=== PATIENT | female | born 1940 | race Caucasian/White ===

== ENCOUNTER → 2019-03-20 11:47 | Outpatient (CLI) | payer MEDICARE, SELFPAY ==
--- NOTE | 2019-03-20 11:55 | US_ITS ---
STUDY: RENAL ULTRASOUND - COMPLETE REASON FOR EXAM: Female, 78 years old. UTI urinary frequency TECHNIQUE: Ultrasound evaluation of the kidneys was performed with real-time and static gunn-scale imaging. COMPARISON: None. FINDINGS: RIGHT KIDNEY: Normal location of the right kidney, which is normal in size. The right kidney measures 10.5 x 5.7 x 4.8 cm. There is a normal cortex of the right kidney. The renal cortex measures 1.2 cm. There is a right-sided renal cyst measuring 3.1 x 1.9 cm. There is a focal cystic structure with adjacent calcification in the upper pole measuring 1.5 x 0.9 cm. The punctate echogenic foci. There is no right hydronephrosis. DISTAL RIGHT URETER: There is non-visualization of the distal right ureter. There is no demonstrated right ureterovesical junction calculus. There is no demonstrated right ureteral jet. LEFT KIDNEY: Normal location of the left kidney, which is normal in size. The left kidney measures 9.9 x 4.7 x 4.7 cm. There is diffuse thinning of the renal cortex. The renal cortex measures 0.5 cm. The left renal cyst measuring 1.2 x 1.2 x 1.2 cm. Punctate echogenic foci. There is no left hydronephrosis. DISTAL LEFT URETER: There is non-visualization of the distal left ureter. There is no demonstrated left ureterovesical junction calculus. There is no demonstrated left ureteral jet. BLADDER: The distended urinary bladder has a volume of ml. The empty urinary bladder has a volume of ml. There is a normal wall thickness of the distended urinary bladder. There is no demonstrated mass within the urinary bladder. There are no demonstrated bladder calculi. US/Kidney and Bladder IMPRESSION: Bilateral renal stones, no evidence of hydronephrosis. Bilateral benign-appearing renal cysts. Left renal cortical thinning suggesting underlying medical renal disease. Electronically Signed: Yvonne Valdivia MD at 17:52 EST Tel , Service support ,
== END ==
PROVIDERS: Family Provider Internal Medicine; PCP Internal Medicine; Referring Provider Urology; Visit Provider Urology
DX: N39.0 Urinary tract infection, site not specified (principal)
CPT/HCPCS: 76770

== ENCOUNTER → 2019-03-31 12:55 | Outpatient (CLI) | payer MEDICARE, SELFPAY ==
--- NOTE | 2019-03-31 12:59 | CT_ITS ---
STUDY: CT ABDOMEN AND PELVIS WITHOUT CONTRAST REASON FOR EXAM: Female, 78 years old. Recurrent urinary tract infection and kidney stones. RADIATION DOSAGE (If Supplied By Facility): CTDIvol = ( 14.44 ) mGy, DLP = ( 672.13 ) mGycm TECHNIQUE: Transaxial images were obtained from the dome of the diaphragm to the symphysis pubis without oral contrast, and without intravenous contrast. Sagittal and coronal images were reconstructed. Individualized dose optimization techniques were used for this CT. COMPARISON: Prior ultrasound exam of March 20, 2019 FINDINGS: The visualized lung bases are unremarkable. The visualized portions of the heart are within normal limits. Normal liver. There are surgical clips in the gallbladder fossa consistent with a prior cholecystectomy. Normal spleen. Normal pancreas. Normal bilateral adrenal glands. Normal size of the right kidney. 2.7 x 2.2 parapelvic cyst of the midpole of the right kidney. Minimal calcification in the lower pole. Negative for hydronephrosis or ureteral stones. Normal size of the left kidney without hydronephrosis, ureteral or renal stones. Nondistended stomach. Nondistended small bowel. Diverticulosis of the colon without evidence of acute diverticulitis. There is non-visualization of the appendix. Normal abdominal aorta. Normal inferior vena cava. There is a modest amount of nonspecific soft tissue density which appears to surround aortic and caval bifurcation without other significant adenopathy of the abdomen or pelvis. Nondistended urinary bladder. Status post hysterectomy without pelvic mass or free fluid of the pelvis. Normal abdominal wall. There are diffuse degenerative changes of the visualized lumbar spine with demineralized osseous structures. CT/Abdomen/Pelvis without Cont IMPRESSION: Normal size of the right kidney. 2.7 x 2.2 cm parapelvic cyst of the mid lower pole. There is one minimal nonobstructing calcification in the lower pole. Otherwise negative for hydronephrosis or ureteral stones. The size of the left kidney without hydronephrosis, renal or ureteral stones. Unremarkable urinary bladder. No acute bowel related findings. Diverticulosis of the colon without evidence of acute diverticulitis. Status post hysterectomy without pelvic mass or free fluid of the pelvis. Small amount of nonspecific nonenhancing tissue at the bifurcation of the aorta and inferior vena cava without other evidence of abdominal or pelvic adenopathy. Possibly residual fibrotic tissue from prior inflammation. Unremarkable liver, spleen and pancreas status post cholecystectomy. Electronically Signed: Mamta Lepe MD at 22:11 EST , Service support ,
== END ==
PROVIDERS: Family Provider Internal Medicine; PCP Internal Medicine; Referring Provider Urology; Visit Provider Urology
DX: N20.0 Calculus of kidney (principal)
CPT/HCPCS: 74176